=== PATIENT | female | born 1995 | race African-American/Black ===

== ENCOUNTER 2022-06-07 10:35 | Emergency (ER) | payer OTHER ==
--- NOTE | 2022-06-07 11:45 | RAD REPORT ---
EXAM DESCRIPTION: Jeanmarie Single View06/07/2022 11:20 am CLINICAL HISTORY: Chest pain COMPARISON: none FINDINGS: The lungs appear clear of acute infiltrate. The heart is normal size IMPRESSION: No acute abnormalities displayed
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
[2022-06-07] MEDS ORDERED: ACETAMINOPHEN 325 MG TABLET ONE (12:45)
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
[2022-06-07 14:07] VITALS: BP 126/77; TEMP 97.5; O2SAT 100
== END 2022-06-07 13:57 | disposition home or self-care (01) ==
LOC: ER 10:35
DX: S39.012A Strain of muscle, fascia and tendon of lower back, initial encounter (principal); S29.012A Strain of muscle and tendon of back wall of thorax, initial encounter; M54.59 Other low back pain; M54.2 Cervicalgia; V43.52XA Car driver injured in collision with other type car in traffic accident, initial encounter; Z88.0 Allergy status to penicillin
CPT/HCPCS: 70450; 71045; 72125